=== PATIENT | male | born 1970 | race Caucasian/White ===

== ENCOUNTER 2018-03-05 10:28 | Emergency (ER) | payer OTHER ==
[2018-03-05] MEDS: predniSONE 20 MG TAB PO (11:46)
== END 2018-03-05 12:41 | disposition home or self-care (01) ==
LOC: FTE 12:41
DX: G51.0 Bell's palsy (principal); E11.9 Type 2 diabetes mellitus without complications; F17.210 Nicotine dependence, cigarettes, uncomplicated; Z79.84 Long term (current) use of oral hypoglycemic drugs
CPT/HCPCS: 82962; 99283